=== PATIENT | male | born 1990 | race Caucasian/White ===

== ENCOUNTER 2016-11-11 13:29 | Emergency (ER) | payer SELFPAY ==
[~2016-11-11] VITALS: Ht 177.8 cm; Wt 109.1 kg
[2016-11-11] MEDS ORDERED: POVIDONE-IODINE 10% 15 ML SOLUTION UD TP ONE (14:30)
[2016-11-11] MEDS ORDERED: BUPIVACAINE HCL/PF 0.25% 10 ML VIAL INJ ONE (14:30)
[2016-11-11] MEDS ORDERED: PERTUSS(ACELL),DIPH,TET VAC/PF 0.5 ML VIAL IM ONE (14:30)
[2016-11-11] MEDS ORDERED: IBUPROFEN 800 MG TABLET PO ONE (14:30)
[2016-11-11 15:24] VITALS: BP 128/74
== END 2016-11-11 15:32 | disposition home or self-care (01) ==
LOC: EMS 13:32
DX: S01.81XA Laceration without foreign body of other part of head, initial encounter (principal); F17.210 Nicotine dependence, cigarettes, uncomplicated; F12.90 Cannabis use, unspecified, uncomplicated; W22.8XXA Striking against or struck by other objects, initial encounter; Y93.89 Activity, other specified; Y92.89 Other specified places as the place of occurrence of the external cause; Y99.8 Other external cause status
CPT/HCPCS: 12011; 90471; 90715; 99283; J3490

== ENCOUNTER 2021-12-27 12:09 | Emergency (ER) | payer MEDICAID ==
[~2021-12-27] VITALS: Ht 170.2 cm; Wt 118.2 kg
[2021-12-27] MEDS ORDERED: LIDOCAINE 1% 10 ML VIAL SQ ONE (12:30)
[2021-12-27 12:32] VITALS: BP 160/83
[2021-12-27] MEDS ORDERED: PERTUSS(ACELL),DIPH,TET VAC/PF 0.5 ML SYRINGE IM. ONE (12:45)
[2021-12-27] MEDS ORDERED: CEPH-558 PO (13:04)
== END 2021-12-27 13:30 | disposition home or self-care (01) ==
LOC: EMS 12:12
DX: S91.011A Laceration without foreign body, right ankle, initial encounter (principal); R56.9 Unspecified convulsions; F17.210 Nicotine dependence, cigarettes, uncomplicated; F12.90 Cannabis use, unspecified, uncomplicated; W26.8XXA Contact with other sharp object(s), not elsewhere classified, initial encounter; Y93.89 Activity, other specified; Y92.89 Other specified places as the place of occurrence of the external cause; Y99.8 Other external cause status
CPT/HCPCS: 99283; 90715; 90471; 12004; J3490

== ENCOUNTER 2022-01-16 14:50 | Emergency (ER) | payer MEDICAID ==
[~2022-01-16] VITALS: Ht 175.3 cm; Wt 109.1 kg
[~2022-01-16 14:50] MED LIST: CEPH-558 PO
[2022-01-16 15:03] VITALS: BP 143/86
== END 2022-01-16 15:55 | disposition home or self-care (01) ==
LOC: EMS 15:04
DX: S91.011D Laceration without foreign body, right ankle, subsequent encounter (principal); Z48.02 Encounter for removal of sutures; F17.210 Nicotine dependence, cigarettes, uncomplicated; F12.90 Cannabis use, unspecified, uncomplicated; R56.9 Unspecified convulsions
CPT/HCPCS: 99282; Z7502